=== PATIENT | female | born 1955 | race Caucasian/White ===

== ENCOUNTER 2017-09-06 19:40 | Emergency (ER) | payer BC, MEDICAID ==
[2017-09-06 20:11] VITALS: O2SAT 98
[2017-09-06] MEDS ORDERED: Albuterol 0.083% Inhal Sol (2.5 mg/3 mL) UD INH STA (20:52)
[2017-09-06] MEDS ORDERED: Promethazine/Cod 6.25mg-10mg/5ml Syr UD PO STA (20:52)
--- NOTE | 2017-09-06 20:54 | ED PDOC ---
HPI: CCC, URI, Sore Throat Time Seen by Provider: 09/06/17 20:12 Chief Complaint (Nursing): Respiratory Distress Chief Complaint (Provider): Cough History Per: Patient History/Exam Limitations: no limitations Onset/Duration Of Symptoms: Days (x4) Current Symptoms Are (Timing): Still Present Location Of Pain: None Sick Contacts (Context): None Associated Symptoms: Cough. denies: Fever, Sore Throat, Vomiting, Diarrhea Ear Symptoms: Bilateral: None Additional Complaint(s): 62 year old female presents to the emergency department with her daughter for a cough x4 days which is productive of white sputum. The patient states that she also experiences chest pain and back pain but only when she coughs. Denies LOPEZ, chest pain or back pain at rest, fever, chills, abdominal pain, headache, sore throat, shortness of breath, leg pain/swelling. PMD: [facility] Past Medical History Vital Signs: Last Vital Signs Temp 97.8 F 09/06/17 21:52 Pulse 70 09/06/17 21:52 Resp 18 09/06/17 21:52 BP 150/81 09/06/17 21:52 Pulse Ox 98 09/06/17 21:52 - Medical History PMH: Anxiety, Depression - Surgical History Surgical History: Cholecystectomy, Coronary Stent - Family History Family History: States: No Known Family Hx - Social History Current smoker - smoking cessation education provided: No Ex-Smoker (has not smoked in the last 12 months): No Alcohol: None Drugs: Denies - Immunization History Hx Tetanus Toxoid Vaccination: No Hx Influenza Vaccination: No Hx Pneumococcal Vaccination: No - Home Medications Home Medications: Ambulatory Orders Medication Instructions Recorded Cephalexin [cephalexin] 500 mg PO TID #21 cap 01/03/16 Prednisone 50 mg PO DAILY #4 tablet 01/03/16 Methylprednisolone [Medrol Dose 4 mg PO DAILY #21 mg 01/11/16 Pack (21 tabs)] Mupirocin Calcium Cream [Bactroban] 1 appl EXT TID #15 gm 01/11/16 Triamcinolone Acetonide [Kenalog 1 applic TP BID #1 tube 01/11/16 0.025% cream] Ibuprofen [Motrin] 600 mg PO Q6 PRN #15 tab 05/23/16 Albuterol HFA [Ventolin HFA 90 2 puff IH [id number] PRN #1 inhaler 09/06/17 mcg/actuation (8 g)] Azithromycin [Zithromax] 250 mg PO DAILY #6 tab 09/06/17 Promethazine DM [Phenergan DM 5 - 10 ml PO Q8 PRN #120 ml 09/06/17 Syrup] - Allergies Allergies/Adverse Reactions: Allergies Allergy/AdvReac Type Severity Reaction Status Date / Time No Known Allergies Allergy Verified 09/06/17 20:07 Review of Systems ROS Statement: Except As Marked, All Systems Reviewed And Found Negative Constitutional: Negative for: Fever ENT: Negative for: Throat Pain Cardiovascular: Positive for: Chest Pain (only with cough) Respiratory: Positive for: Cough. Negative for: Shortness of Breath Gastrointestinal: Negative for: Vomiting, Abdominal Pain Musculoskeletal: Positive for: Back Pain (only with cough) Physical Exam - Reviewed Nursing Documentation Reviewed: Yes Vital Signs Reviewed: Yes - Physical Exam Appears: Positive for: Well, Non-toxic, No Acute Distress (actively coughing) Head Exam: Positive for: ATRAUMATIC, NORMAL INSPECTION, NORMOCEPHALIC Skin: Positive for: Normal Color, Warm, Dry. Negative for: Rash Eye Exam: Positive for: Normal appearance, EOMI, PERRL ENT: Positive for: Normal ENT Inspection. Negative for: Nasal Congestion, Tonsillar Exudate Neck: Positive for: Normal, Painless ROM, Supple Cardiovascular/Chest: Positive for: Regular Rate, Rhythm, Chest Non Tender. Negative for: Tachycardia Respiratory: Positive for: Normal Breath Sounds. Negative for: Crackles, Rales , Rhonchi, Wheezing, Respiratory Distress Back: Positive for: Normal Inspection. Negative for: L CVA Tenderness, R CVA Tenderness Extremity: Positive for: Normal ROM. Negative for: Calf Tenderness Neurologic/Psych: Positive for: Alert, Oriented - ECG ECG: Positive for: Interpreted By Me ECG Rhythm: Positive for: Sinus Rhythm. Negative for: ST/T Changes Rate: 70 O2 Sat by Pulse Oximetry: 98 (RA) Pulse Ox Interpretation: Normal - Radiology X-Ray: Interpreted by Me (CXR) X-Ray Interpretation: No Acute Disease - Progress Re-evaluation Time: 21:29 (Cough resolved. Reports no chest pain or back pain at rest.) Condition: Re-examined, Improved Medical Decision Making Medical Decision Makin Initial Impression 62 year old female presenting with cough Initial PLan: * CXR * Albuterol 2.5mg INH * Phenergan/Codeine Oral syrup 5mL PO * Peak flow pre/post * Reevaluation --------- Documented by Desi Morel acting as a scribe for Bronson Martin PA-C. Disposition - Clinical Impression Clinical Impression: Acute bronchitis - Patient ED Disposition Is Patient to be Admitted: No - Disposition Referrals: Ayesha Page [Outside] Disposition: Routine/Home Disposition Time: 21:31 Condition: IMPROVED Additional Instructions: Follow up with your PMD for further evaluation. Return to ED immediately if symptoms worsen. Prescriptions: Albuterol HFA [Ventolin HFA 90 mcg/actuation (8 g)] 2 puff IH [id number] PRN #1 inhaler PRN Reason: wheezing or cough Azithromycin [Zithromax] 250 mg PO DAILY #6 tab Promethazine DM [Phenergan DM Syrup] 5 - 10 ml PO Q8 PRN #120 ml PRN Reason: Cough Instructions: Acute Bronchitis, Adult (DC) Forms: [employer] (Yakut)
[2017-09-06] MEDS ORDERED: Promethazine/Cod 6.25mg-10mg/5ml Syr UD ONE (21:11)
[2017-09-06] MEDS ORDERED: Albuterol 0.083% Inhal Sol (2.5 mg/3 mL) UD ONE (21:12)
[2017-09-06 21:31] VITALS: PULSE 70
[2017-09-06 21:52] VITALS: BP 150/81; RESP 18; TEMP 97.8
--- NOTE | 2017-09-07 09:42 | RAD ---
CHEST RADIOGRAPHS Frontal and lateral views of the chest been submitted for evaluation of cough. No prior compression available. A small hiatal hernia is suspected posterior to the heart approaching the midline. No acute infiltrate pleural effusion or pneumothorax identified this time. Limited biapical pleural thickening is appreciated. Cardiac size is normal and there is no pulmonary vascular derangement evident. Trachea is midline. Surgical clips are incidentally noted in the right upper quadrant abdomen. IMPRESSION: No acute infiltrate or pleural effusion bilaterally. Small hiatal hernia is felt to present posterior to the heart.
== END 2017-09-06 22:40 | disposition home or self-care (01) ==
LOC: H.ER 19:40
DX: J20.9 Acute bronchitis, unspecified (principal); F32.9 Major depressive disorder, single episode, unspecified; F41.9 Anxiety disorder, unspecified; K44.9 Diaphragmatic hernia without obstruction or gangrene; Z95.5 Presence of coronary angioplasty implant and graft